=== PATIENT | female | born 1950 | race Caucasian/White ===

== ENCOUNTER 2019-01-09 15:32 | Emergency (ER) | payer MEDICARE, BC ==
[2019-01-09 16:59] VITALS: O2SAT 99
[2019-01-09] MEDS ORDERED: LEVOFLOXACIN 25 MG/ML 500 MG in SODIUM CHLORIDE 0.9% 100 ML 100 ML IV ONE (17:23)
[2019-01-09 17:46] LABS: BASOPHILS % (AUTO) 1 % (0-3); EOSINOPHILS % (AUTO) 2 % (0-9); HEMATOCRIT 40 % (35-47); HEMOGLOBIN 12.9 gm/dl (12.0-15.5); LYMPHOCYTES % (AUTO) 30.4 % (10-50); MEAN CORPUSCULAR HGB CONC 31.9 gm/dl (32.0-36.0); MEAN CORPUSCULAR VOLUME 94 fL (81-99); MONOCYTES % (AUTO) 5.7 % (0-12); NEUTROPHILS % (AUTO) 61.1 % (37-80)
[2019-01-09] MEDS ORDERED: LEVOFLOXACIN 25 MG/ML SOL IV ONE (17:50)
[2019-01-09 17:55] LABS: CALCIUM 8.6 mg/dl (8.5-10.1); CREATININE 0.72 mg/dl (0.60-1.00); CRP INFLAMMATORY 0.09 mg/dl (0.00-0.33)
[2019-01-09 18:09] LABS: CARBON DIOXIDE 28.8 mEq/L (21-32)
[2019-01-09] MEDS ORDERED: LEVOFLOXACIN 500 MG TAB PO ONE (18:11)
[2019-01-09] MEDS ORDERED: LEVOFLOXACIN 500 MG TAB ONE (18:57)
[2019-01-09] MEDS ORDERED: LORAZEPAM 2 MG/ML SOL IV ONE (19:48)
[2019-01-09] MEDS ORDERED: SODIUM CHLORIDE 0.9% 500 ML 500 ML IV ONE (20:00)
[2019-01-09] MEDS ORDERED: SODIUM CHLORIDE 0.9% 1000ML 1,000 ML IV SCH (20:00)
[2019-01-09] MEDS ORDERED: LORAZEPAM 2 MG/ML SOL ONE (20:07)
[2019-01-09 20:13] VITALS: BP 163/85; PULSE 88; RESP 20; TEMP 97.8
== END 2019-01-09 21:02 | disposition home or self-care (01) | DRG 204 ==
LOC: ED 15:32
DX: R91.8 Other nonspecific abnormal finding of lung field (principal); J18.9 Pneumonia, unspecified organism; C78.00 Secondary malignant neoplasm of unspecified lung; C50.919 Malignant neoplasm of unspecified site of unspecified female breast; F41.8 Other specified anxiety disorders; R06.02 Shortness of breath
CPT/HCPCS: 36415; 71045; 80048; 85025; 86140; 99284; J1956; J2060; A9270-GY

== ENCOUNTER 2019-01-16 19:40 | Emergency (ER) | payer MEDICARE, BC ==
[2019-01-16 20:53] LABS: BASOPHILS % (AUTO) 1 % (0-3); EOSINOPHILS % (AUTO) 3 % (0-9); HEMATOCRIT 43 % (35-47); HEMOGLOBIN 13.6 gm/dl (12.0-15.5); LYMPHOCYTES % (AUTO) 35.7 % (10-50); MEAN CORPUSCULAR HEMOGLOBIN 30.7 pg (27.0-32.0); MEAN CORPUSCULAR HGB CONC 31.8 gm/dl (32.0-36.0); MEAN CORPUSCULAR VOLUME 96 fL (81-99); MONOCYTES % (AUTO) 6.3 % (0-12); NEUTROPHILS % (AUTO) 54.4 % (37-80)
[2019-01-16 21:10] LABS: ALBUMIN 3.3 gm/dl (3.4-5.0); BILIRUBIN,TOTAL 0.2 mg/dl (0.2-1.0); CALCIUM 8.7 mg/dl (8.5-10.1); CARBON DIOXIDE 30.2 mEq/L (21-32); CREATININE 0.69 mg/dl (0.60-1.00); TOTAL PROTEIN 6.5 gm/dl (6.4-8.2)
[2019-01-16 21:20] VITALS: BP 142/67; PULSE 83; RESP 16; TEMP 96.2; O2SAT 98
== END 2019-01-16 22:23 | disposition home or self-care (01) | DRG 641 ==
LOC: ED 19:40
DX: E86.0 Dehydration (principal); M79.605 Pain in left leg
CPT/HCPCS: 36415; 71045; 80053; 85025; 85379; 99282; 99283